=== PATIENT | male | born 1955 | race Caucasian/White ===

== ENCOUNTER 2017-12-02 19:54 | Emergency (ER) | payer SELFPAY ==
[~2017-12-02] VITALS: Ht 193 cm; Wt 95.5 kg
[2017-12-02 20:02] VITALS: Ht 193 cm; Wt 95.5 kg
[2017-12-02] MEDS ORDERED: BACTRIM DS TABL1 TAB PO (22:08)
[2017-12-02] MEDS ORDERED: TORADOL10 MG PO (22:08)
[2017-12-02] MEDS ORDERED: LAMISIL250 MG PO (22:24)
[2017-12-02 23:35] VITALS: BP 137/75
== END 2017-12-02 23:35 | disposition home or self-care (01) ==
LOC: D.ER 19:54
DX: L03.115 Cellulitis of right lower limb (principal); B35.3 Tinea pedis